=== PATIENT | female | born 1955 | race Caucasian/White ===

== ENCOUNTER 2024-10-19 11:53 | Emergency (ER) | payer OTHER, MEDICAID ==
[~2024-10-19] VITALS: Ht 165.1 cm; Wt 92.7 kg
[2024-10-19 12:55] VITALS: TEMP 98.2
[2024-10-19 13:41] LABS: BASOPHILS % (AUTO) 0.3 % (0.0-2.0); EOSINOPHILS % (AUTO) 2.7 % (1.0-6.0); HEMOGLOBIN 11.5 g/dL (12.0-16.0); LYMPHOCYTES # (AUTO) 1.8 K/uL (1.0-4.8); MEAN CORPUSCULAR HEMOGLOBIN 25.2 pg (26.0-34.0); MEAN CORPUSCULAR HGB CONC 31.9 G/dL (31.0-37.0); MEAN CORPUSCULAR VOLUME 79 fL (80-100); MONOCYTES # (AUTO) 0.6 K/uL (0.1-1.0); MONOCYTES % (AUTO) 6.1 % (2.0-9.0); NEUTROPHILS # (AUTO) 6.8 K/uL (1.8-7.7); NEUTROPHILS % (AUTO) 71.9 % (40.0-70.0); PLATELET COUNT (AUTO) 241 K/uL (150-450); RED BLOOD CELL COUNT(AUTO) 4.57 MIL/uL (4.00-5.20); RED CELL DISTRIBUTION WIDTH 17.3 % (11.5-14.5); WHITE BLOOD COUNT (AUTO) 9.5 K/uL (4.5-11.0)
[2024-10-19 13:47] LABS: PROTHROMBIN TIME 10.8 SEC (9.4-11.6)
[2024-10-19 13:50] LABS: ANION GAP 3 mmol/L (8-16); CALCIUM, TOTAL 9.7 mg/dL (8.8-10.5); CARBON DIOXIDE 28 mmol/L (22-29); CHLORIDE 105 mmol/L (98-107); CREATININE 1.68 mg/dL (0.60-1.30); GLOMERULAR FILTR. RATE CALC 30 mL/min (>60); GLUCOSE,RANDOM 131 mg/dL (70-110); SODIUM SERUM 136 mmol/L (136-145); UREA NITROGEN, BLOOD 22 mg/dL (7-18)
[2024-10-19 14:13] LABS: B-TYPE NATRIURETIC PEPTIDE 77 pg/mL (0-100); CREATINE KINASE, TOTAL ONLY 75 U/L (26-192); TROPONIN I-HIGH SENSITIVITY 4 ng/L (<51)
[2024-10-19] MEDS: SODIUM CHLORIDE 0.9% 1,000 ML IV ONE (14:16)
[2024-10-19] MEDS: ACETAMINOPHEN 325 MG TABLET PO ONE (15:14)
[2024-10-19] MEDS: FAMOTIDINE 20 MG/2 ML VIAL IVP ONE (15:15)
[2024-10-19 15:31] LABS: ALANINE AMINOTRANSFERASE 84 U/L (12-78); ALBUMIN 3.1 g/dL (3.4-5.0); ALKALINE PHOSPHATASE 130 U/L (46-116); ASPARTATE AMINOTRANSFERASE 58 U/L (15-37); BILIRUBIN,TOTAL 0.7 mg/dL (0.1-1.0); TOTAL PROTEIN, SERUM 7.2 g/dL (6.4-8.2)
[2024-10-19 17:42] VITALS: BP 125/69; PULSE 71; RESP 18; O2SAT 95
[2024-10-19] MEDS ORDERED: ONDA-104 PO (17:46)
== END 2024-10-19 17:56 | disposition home or self-care (01) ==
LOC: EMS 12:08
DX: R42 Dizziness and giddiness (principal); R11.0 Nausea; R10.13 Epigastric pain; I12.9 Hypertensive chronic kidney disease with stage 1 through stage 4 chronic kidney disease, or unspecified chronic kidney disease; N18.9 Chronic kidney disease, unspecified; R74.01 Elevation of levels of liver transaminase levels
CPT/HCPCS: 99285; 74176; 96374; 71045; 96361; 80048; 80076; 82550; 83735; 83880; 84484; 85025; 85610; 85730; 36415; 82962; 93005; J3490; J7030